=== PATIENT | male | born 1970 | race Caucasian/White ===

== ENCOUNTER → 2016-08-05 | Outpatient (CLI) | payer BC ==
--- NOTE | 2016-08-05 08:08 | DIAGNOSTIC IMAGING REPORT ---
UPPER ABDOMINAL ULTRASOUND HISTORY: Upper abdominal mass. Evaluate for hernia or mass. COMPARISON: None. TECHNIQUE: Sonography of the upper abdomen and left lower chest at site of palpable abnormality was performed. FINDINGS: No mass, fluid collection or hernia was identified within the left lower chest or upper abdomen at site of palpable abnormality. IMPRESSION: No mass, fluid collection or hernia identified by sonography within the left lower chest or upper abdomen at site of palpable abnormality. Electronically signed by: Timmy Matthew M.D. 08/05/2016 8:07 AM Dictated Date/Time: 08/05/2016 8:05 AM
== END | disposition home or self-care (01) ==
LOC: C.ULTR 07:21
PROVIDERS: ATTEND Family Medicine
DX: R19.09 Other intra-abdominal and pelvic swelling, mass and lump (principal)